=== PATIENT | female | born 1940 | race Caucasian/White ===

== ENCOUNTER 2019-11-18 06:58 | Emergency (ER) | payer OTHER ==
[~2019-11-18] VITALS: Ht 160 cm; Wt 46.7 kg
[2019-11-18 07:03] VITALS: Ht 160 cm; Wt 46.7 kg
[2019-11-18 08:44] VITALS: BP 166/67
== END 2019-11-18 08:44 | disposition home or self-care (01) ==
LOC: ED 06:58
DX: S01.81XA Laceration without foreign body of other part of head, initial encounter (principal); S41.102A Unspecified open wound of left upper arm, initial encounter; W01.0XXA Fall on same level from slipping, tripping and stumbling without subsequent striking against object, initial encounter; Y93.89 Activity, other specified; Y92.89 Other specified places as the place of occurrence of the external cause; Y99.8 Other external cause status
CPT/HCPCS: 90715; J2001